=== PATIENT | male | born 1960 | race American Indian/Alaskan Native ===

== ENCOUNTER 2020-10-01 13:27 | Emergency (ER) | payer SELFPAY ==
--- NOTE | 2020-10-01 13:50 | Emergency Department Report ---
ED CPR HPI - General Stated Complaint: CA Time Seen by Provider: 10/01/20 13:27 Source: EMS, old records reviewed (No previous medical record for review) Mode of arrival: Stretcher Limitations: Altered Mental Status - History of Present Illness Initial Comments: 60 year-old male with a past medical history of CAD with stent and pacemaker presents to the hospital in cardiopulmonary arrest. Patient was found unresponsive in the bathroom. Person at the scene states that here she has spoke to him 11:30 AM and came by to check on him. Upon EMS arrival he was slumped over on the toilet with initial rhythm of asystole. Patient is intubated 7.0 ET tube and received 4 rounds of epinephrine, and 1 amp of bicarb. Patient was rhythm with asystole to PEA back to asystole. Patient is in asystole and apneic upon arrival with CPR in progress. 911 was called at 12:45 PM EMS on scene at 12:54 PM Patient arrival 13: 25 ED Review of Systems ROS: Stated complaint: CA Other details as noted in HPI Comment: Unobtainable due to pts medical conditions ED Physical Exam - Other Other exam information: General: Unresponsive Head: Atraumatic Eyes: Pupils fixed and dilated ENT: Orally intubated 7.0 ET tube Neck: Normal appearance Chest: Apneic, clear and equal breath sounds with bagging CV: Pulseless, asystole on the Abdomen: Soft, nondistended Back: Normal inspection Extremity: Normal inspection, no spontaneous movement Neuro: GCS equals 3 Psych: Unresponsive Skin: No rash, warm ED Course - Reevaluation(s) Reevaluation #1: 10/01/20 Resuscitation efforts continued upon patient arrival. Accu-Chek performed glucose 137 upon arrival. Additional epinephrine provided in the ED. Unfortunately patient remained in asystole without any response to resuscitation efforts. Pupils remain fixed and dilated. Time of 13:31 with total downtime of approximately 45 minutes from time of 911 call ED Medical Decision Making - Medical Decision Making 60-year-old male presents to the hospital cardiopulmonary arrest. Last known well time was 11:30 AM. EMS notified at 12: 40 5 PM after patient found unresponsive. Patient remained in a pulseless rhythm (asystole and PEA) throughout t duration of resuscitation efforts with the initial presentation of fixed and dilated pupils. Unfortunately patient and time of 13: 31 I spoke with patient's live-in abigail in the ED at 2:52 PM. She is someone who found patient unresponsive. She states she was on her way home from [place] and I spoke to him 2 hours prior to discovering his body. She has been out of town for the last several days and states to her knowledge she had no complaints. He typically receives his health care at [facility]. She was informed of patient's . Apparently patient has a daughter that lives in [place]. Charge nurse Caden is attending additional family contact information. Critical Care Time: No Critical care attestation.: If time is entered above; I have spent that time in minutes in the direct care of this critically ill patient, excluding procedure time. ED Disposition Clinical Impression: Cardiopulmonary arrest Disposition: DC-20 Is pt being admited?: No Condition: Critical Time of Disposition: 13:56
== END 2020-10-01 19:00 ==
LOC: ED 13:27
DX: I46.9 Cardiac arrest, cause unspecified (principal)